=== PATIENT | female | born 1960 | race Caucasian/White ===

== ENCOUNTER → 2023-12-25 09:34 | Outpatient (REF) | payer OTHER, SELFPAY | LOC: WDC 09:34 | PROVIDERS: ATTENDING PHYSICIAN Nurse Practitioner Adult Health; FAMILY PHYSICIAN Nurse Practitioner | DX: N64.4 Mastodynia (principal) | CPT/HCPCS: 76642; 77062; 77066 ==

== ENCOUNTER 2024-03-06 10:20 | Emergency (ER) | payer OTHER, SELFPAY ==
[2024-03-06 10:25] VITALS: BP 162/95
[2024-03-06 11:11] LABS: % Basophils 0.4 % (0-2); % Eosinophils 1.3 % (0-6); % Immature Granulocytes 0.2 % (0-0.5); % Lymphocytes 26.4 % (20.5-51.1); % Neutrophils 62.7 % (42.2-75.2); Absolute Eosinophils 0.1 10^3/uL (0-0.7); Absolute Lymphocytes 1.2 10^3/uL (1.2-3.4); Absolute Monocytes 0.4 10^3/uL (0.1-0.6); Absolute Neutrophils 2.9 10^3/uL (1.4-6.5); Hematocrit 36.5 % (37.0-47.0); Hemoglobin 12.7 g/dL (12.0-16.0); Mean Corp Hgb Conc. 34.8 g/dL (33.0-37.0); Mean Corpuscular Hgb 29.4 pg (27.0-31.0); Mean Corpuscular Volume 84.5 fL (81.0-99.0); Nucleated Red Blood Cells % 0 %; Platelet Count 228 10^3/uL (130-400); Red Blood Cell Count 4.32 10^6/uL (4.20-5.40); Red Cell Dist. Width 12.8 % (11.5-14.5); White Blood Cell Count 4.7 10^3/uL (4.8-10.8)
--- NOTE | 2024-03-06 11:11 | ED.GENMED ---
History of Present Illness
General
Chief Complaint: Throat Problem
Time Seen by Provider: 03/06/24 10:30
Travel History
Have you had any contact with someone who has COVID-19?: No
Do you have any symptoms of coronavirus? Fever > 100 degrees, chills, cough, shortness of breath, sore throat, loss of taste or smell, muscle aches, or headache?: Yes
Symptoms:: sore throat
History of Present Illness
History of Present Illness:
63-year-old female with history of thyroid cancer status post thyroidectomy presents to the emergency department for evaluation of left-sided neck discomfort and dysphagia for the past 4 days. Denies any associated fevers or chills. No voice
changes or stridor. No URI symptoms or coughing. No pain with neck rotation. No ill contacts at home.
Past History
Past History
ED Past Medical History: Cancer
ED Past Surgical History: Other (thyroid sx)
Review of Systems
Review of Systems
Allergies reviewed?: Yes
All Other Systems: ROS reviewed and negative except as documented in HPI and ROS
Phy Exam
Physical Exam
Physical Exam:
GEN: Well appearing, NAD, WDWN
HEENT: Oral mucosa moist, no scleral icterus, oropharynx clear without erythema, or tonsillar hypertrophy. No stridor, normal phonation. No palpable cervical adenopathy
Cardiac: Regular rate
Lung: No respiratory distress, no tachypnea
MSK: No gross deformity or injuries
Skin: Good color, no pallor or jaundice, no rashes
Neuro: AO x3, moves all extremities freely
Psych: Calm, cooperative
Course
Orders/Labs/Results
Orders:
Orders
03/06/24 11:01
CT Neck With Iv Contrast Urgent
Comment:
Reason For Exam: L neck pain/dysphagia
03/06/24 11:04
Basic Metabolic Panel Urgent
Complete Blood Count/With Diff Urgent
Abnormal Lab Results
03/06/24
11:04
WBC 4.7 L 10^3/uL
(4.8-10.8)
Hct 36.5 L %
(37.0-47.0)
Sodium 134 L mmol/L
(135-145)
Glucose 111 H mg/dl
(70-99)
Calcium 8.2 L mg/dl
(8.4-10.2)
03/06/24 11:04
03/06/24 11:04
Vital Signs
Initial and Last Documented VS:
Initial Vital Signs
Temp Pulse Resp BP Pulse Ox
98.0 F 87 18 162/95 97
03/06/24 10:25 03/06/24 10:25 03/06/24 10:25 03/06/24 10:25 03/06/24 10:25
Last Documented Vital Signs
Temp Pulse Resp BP Pulse Ox
98.0 F 87 18 162/95 97
03/06/24 10:25 03/06/24 10:25 03/06/24 10:25 03/06/24 10:25 03/06/24 10:25
MDM/Problems Addressed
MDM/Problems Addressed:
Workup is unremarkable, labs and CT are reassuring, discussed need for primary care follow-up for any worsening symptoms
*Critical Care Note
Total Time (30-74mins, 75-104mins- exclusive of procedures): Not Applicable
ED Attending Note
-
Portions of this chart may have been created with voice recognition software.� Occasional wrong word or��sound alike� substitutions may have occurred due to the inherent limitations of voice recognition software.
Discharge Plan
Departure
Patient Disposition: Home (Routine Discharge)
Date of Disposition: 03/06/24
Time of Disposition: 12:09
Patient with high blood pressure during this ER visit?: No
Discharge Problem:
Acute viral pharyngitis
Instructions: Sore Throat, Adult (DC)
Prescriptions:
No Action
hydroxyzine HCl 10 MG tablet
10 mg PO TID Qty: 14 0RF
diphenhydramine HCl [Benadryl] 25 MG capsule
50 mg PO PRN PRN (Reason: ITCHING/RASH)
levothyroxine 100 MCG tablet
100 mcg PO DAILY
Referrals:
Tiesha Butler CRNP [Family Provider] -
Activity Restrictions/Additional Instructions:
There is no evidence of abscess or obvious infection in the throat
Interventions
Interventions:
*Risk Screen - Suicide Last Done: 03/06/24 12:18
*General Assessment Last Done: 03/06/24 10:25
*Neglect/Abuse Screening Last Done: 03/06/24 12:18
ED- Fall Risk Assessment Last Done: 03/06/24 12:18
*ED COVID-19 Vaccine History Last Done: 03/06/24 10:25
*Nursing Disposition Last Done: 03/06/24 12:18
ED-EENT Assessment Last Done: 03/06/24 12:18
ED- Pulmonary Assessment Last Done: 03/06/24 12:18
Discharge Date and Time
Discharge Date/Time: 03/06/24 12:19
Print Language: EQUATORIAL GUINEAN
[2024-03-06 11:33] LABS: Blood Urea Nitrogen 12 mg/dl (7-17); Calcium 8.2 mg/dl (8.4-10.2); Carbon Dioxide 25 mmol/L (22-30); Chloride 104 mmol/L (98-107); Glucose 111 mg/dl (70-99); Potassium 3.9 mmol/L (3.5-5.1); Sodium 134 mmol/L (135-145); eGFR > 60.00
== END 2024-03-06 12:19 | disposition home or self-care (01) ==
LOC: EMR 10:20
PROVIDERS: Physician Assistant; EMERGENCY PHYSICIAN Emergency Medicine; FAMILY PHYSICIAN Nurse Practitioner
DX: J02.8 Acute pharyngitis due to other specified organisms (principal); R13.10 Dysphagia, unspecified; M54.2 Cervicalgia; Z85.850 Personal history of malignant neoplasm of thyroid; E89.0 Postprocedural hypothyroidism; Z88.0 Allergy status to penicillin
CPT/HCPCS: 99285; 70491; 80048; 85025; Q9967

== ENCOUNTER → 2024-04-15 07:48 | Outpatient (REF) | payer OTHER, SELFPAY | LOC: HWRAD 07:48 | PROVIDERS: ATTENDING PHYSICIAN Internal Medicine Endocrinology, Diabetes & Metabolism; FAMILY PHYSICIAN Nurse Practitioner | DX: C73 Malignant neoplasm of thyroid gland (principal) | CPT/HCPCS: 71260; 74177; Q9967 ==

== ENCOUNTER → 2024-04-29 14:07 | Outpatient (REF) | payer OTHER, SELFPAY | LOC: HWRAD 14:07 | PROVIDERS: ATTENDING PHYSICIAN Nurse Practitioner | DX: M54.2 Cervicalgia (principal) | CPT/HCPCS: 72050 ==

== ENCOUNTER → 2024-05-13 14:44 | Outpatient (REF) | payer OTHER, SELFPAY | LOC: HWRAD 14:44 | PROVIDERS: ATTENDING PHYSICIAN Nurse Practitioner Adult Health; FAMILY PHYSICIAN Nurse Practitioner | DX: N83.209 Unspecified ovarian cyst, unspecified side (principal) | CPT/HCPCS: 76830; 76856 ==

== ENCOUNTER → 2024-06-15 20:02 | Outpatient (REF) | payer OTHER, SELFPAY | LOC: MRI 20:02 | PROVIDERS: ATTENDING PHYSICIAN Nurse Practitioner Adult Health; FAMILY PHYSICIAN Nurse Practitioner | DX: N83.209 Unspecified ovarian cyst, unspecified side (principal) | CPT/HCPCS: 72197 ==

== ENCOUNTER 2024-09-08 09:38 | Emergency (ER) | payer OTHER, SELFPAY ==
--- NOTE | 2024-09-08 09:56 | ED.GENMED ---
History of Present Illness
General
Chief Complaint: Abdominal Symptoms
Source: patient
Exam Limitations: none
Time Seen by Provider: 09/08/24 09:55
Nursing documentation reviewed up to this point in time: agreed with
History of Present Illness
History of Present Illness:
64-year-old female with past medical history of diverticulosis, thyroid cancer, known adnexal mass, hiatal hernia, presents emergency department today with concerns of abdominal pain for the past 4 days. Patient reports that a few days ago she
started experiencing some fullness in the abdomen which started in the suprapubic region and progressed to the periumbilical region. This is associated with intermittent sharp cramping. She notes that the pain is worse with movement and improves
with lying down. Patient states that she notices the pressure more when standing. She denies recent travel, recent antibiotics. Patient denies radiation of the pain to the back. Patient notes some intermittent nausea but denies fevers, denies
vomiting. She had also noted that her stools have gotten looser. She denies blood in the stools, burning with urination. She also notes that her appetite is decreased. Patient states that she has had diverticulitis in the past but states that
this feels different from that time.
Past History
Past History
ED Past Medical History: Cancer
ED Past Surgical History: Other (thyroid sx)
Review of Systems
Review of Systems
All Other Systems: ROS reviewed and negative except as documented in HPI and ROS
Phy Exam
Physical Exam
Physical Exam:
General: Patient is well appearing and in no acute distress; non-toxic
Skin: Warm and dry, no rashes or lesions
Head: Normocephalic, atraumatic
Eyes: Sclera non-icteric. EOMs intact.
Cardiac: Regular rate and rhythm, no murmurs
Peripheral Vascular: No lower extremity swelling or edema
Pulm: Normal respiratory effort, no wheezes, rales, or rhonchi
Abdomen: Left-sided abdominal tenderness to palpation noted, with guarding. No rebound tenderness. No tenderness at McBurney's point.
Neuro: CN II-XII intact, no focal neurologic deficits.
Psychiatric: Appropriate mood and affect.
Course
Orders/Labs/Results
Orders:
Orders
09/08/24 10:00
IV Insert/Care/Rem.- Treatment PRN
09/08/24 10:36
Complete Blood Count/With Diff Urgent
Comprehensive Metabolic Panel Urgent
Lipase Urgent
Comment: ADD ON
09/08/24 10:55
Add On- LAB Urgent
Tests Added?: lipase
09/08/24 10:56
CT Abd/pelvis W Iv Cont Urgent
Comment:
Reason For Exam: periumbilical abdomial pain
Abnormal Lab Results
09/08/24
10:36
Lymphocytes % 17.1 L %
(20.5-51.1)
Glucose 101 H mg/dl
(70-99)
Alkaline Phosphatase 133 H U/L
(38-126)
09/08/24 10:36
09/08/24 10:36
Vital Signs
Initial and Last Documented VS:
Initial Vital Signs
Temp Pulse Resp Pulse Ox
98.5 F 90 18 97
09/08/24 09:43 09/08/24 09:43 09/08/24 09:43 09/08/24 09:43
Last Documented Vital Signs
Temp Pulse Resp BP Pulse Ox
98.5 F 83 18 129/80 96
09/08/24 09:43 09/08/24 14:47 09/08/24 14:47 09/08/24 14:47 09/08/24 14:47
MDM/Problems Addressed
Differential Diagnosis Includes:
Differential include gastritis, diverticulitis, appendicitis, cholecystitis, viral syndrome, musculoskeletal sprain/strain
MDM/Problems Addressed:
63-year-old female with past medical history of diverticulitis presents emergency department today with pelvic pain and central abdominal fullness. She has tenderness to palpation left abdominal region on exam with guarding noted. She is no
palpable abdominal masses. She is afebrile. Her CBC and CMP are unremarkable. Patient did not want anything for pain at this time. Patient was sent for CAT scan with IV contrast which demonstrated findings compatible with diverticulitis
involving the sigmoid colon in the left pelvis with no evidence for abscess, did also note small to moderate central hiatal hernia. Discussed findings with patient, will start patient on Augmentin and discharged the as outpatient. Patient is
documented to have an allergy to penicillins however patient states that she has tolerated penicillins without any interaction in the past. In terms of the hiatal hernia, patient states that she knows about this and has never had reflux symptoms or
epigastric pain, patient states that she will follow-up with PCP. Patient stable for discharge.
Chronic conditions affecting care:
n/a
Acute Exacerbation and/or Progression of Chronic Illness:
n/a
*Pulse Oximetry
Patient hypoxic: no
*Critical Care Note
Total Time (30-74mins, 75-104mins- exclusive of procedures): Not Applicable
Data Reviewed
Review of Other/Old Records Reveals: Records (Reviewed ER physician documentation from 03/06/2024, patient seen for acute pharyngitis, reviewed colonoscopy from [address] Feliciano, patient had scattered diverticulosis but no other lesions)
Source: patient and records
Prescriptions/Medications Considered But Not Given:
n/a
Further Testing Considered But Not Given:
n/a
Patient Management
Escalation/DeEscalation of care consider admission/obs:
Case reviewed with my attending, patient stable for discharge
ED Attending Note
-
Portions of this chart may have been created with voice recognition software.� Occasional wrong word or��sound alike� substitutions may have occurred due to the inherent limitations of voice recognition software.
Discharge Plan
Departure
Patient Disposition: Home (Routine Discharge)
Date of Disposition: 09/08/24
Time of Disposition: 14:32
Patient with high blood pressure during this ER visit?: Yes
Condition: Good
Discharge Problem:
Sigmoid diverticulitis
Instructions: Diverticulitis, Abdominal Pain, BLOOD PRESSURE
Prescriptions:
New
amoxicillin-pot clavulanate 875-125 mg tablet
1 tab PO BID 7 Days Qty: 14 0RF
No Action
hydroxyzine HCl 10 MG tablet
10 mg PO TID Qty: 14 0RF
diphenhydramine HCl [Benadryl] 25 MG capsule
50 mg PO PRN PRN (Reason: ITCHING/RASH)
levothyroxine 100 MCG tablet
100 mcg PO DAILY
Referrals:
Bartolo Napier CRNP [Family Provider] -
Activity Restrictions/Additional Instructions:
Please return to the emergency department should you experience an acute worsening of your symptoms, fevers or chills, nausea or vomiting, chest pain, shortness of breath.
Please follow up with PCP.
Interventions
Interventions:
*Risk Screen - Suicide Last Done: 09/08/24 09:43
*General Assessment Last Done: 09/08/24 09:43
*Neglect/Abuse Screening Last Done: 09/08/24 10:23
ED- Fall Risk Assessment Last Done: 09/08/24 10:24
*ED COVID-19 Vaccine History Last Done: 09/08/24 09:43
*Nursing Disposition Last Done: 09/08/24 14:47
UP-Mqhmyc-Wllniuxwmw Assessment Last Done: 09/08/24 10:24
Discharge Date and Time
Discharge Date/Time: 09/08/24 14:49
Print Language: UPPER SORBIAN
[2024-09-08 10:25] VITALS: BMI 29.2
[2024-09-08 10:45] LABS: % Basophils 0.5 % (0-2); % Eosinophils 0.7 % (0-6); % Immature Granulocytes 0.5 % (0-0.5); % Lymphocytes 17.1 % (20.5-51.1); % Monocytes 7.8 % (1.7-9.3); % Neutrophils 73.4 % (42.2-75.2); Absolute Eosinophils 0.1 10^3/uL (0-0.7); Absolute Lymphocytes 1.4 10^3/uL (1.2-3.4); Absolute Monocytes 0.6 10^3/uL (0.1-0.6); Hematocrit 37.5 % (37.0-47.0); Hemoglobin 12.9 g/dL (12.0-16.0); Mean Corp Hgb Conc. 34.4 g/dL (33.0-37.0); Mean Corpuscular Hgb 29.1 pg (27.0-31.0); Mean Corpuscular Volume 84.5 fL (81.0-99.0); Mean Platelet Volume 9.8 fL (7.4-10.4); Nucleated Red Blood Cells % 0 %; Platelet Count 249 10^3/uL (130-400); Red Blood Cell Count 4.44 10^6/uL (4.20-5.40); Red Cell Dist. Width 12.7 % (11.5-14.5); White Blood Cell Count 8.1 10^3/uL (4.8-10.8)
[2024-09-08 11:02] LABS: ALT (SGPT) 34 U/L (0-35); AST (SGOT) 31 U/L (14-36); Albumin 4.3 g/dl (3.5-5.0); Alkaline Phosphatase 133 U/L (38-126); Blood Urea Nitrogen 10 mg/dl (7-17); Calcium 8.7 mg/dl (8.4-10.2); Carbon Dioxide 24 mmol/L (22-30); Chloride 100 mmol/L (98-107); Estimated Creatinine Clearance 88 ml/min; Glucose 101 mg/dl (70-99); Potassium 4.2 mmol/L (3.5-5.1); Sodium 139 mmol/L (135-145); Total Bilirubin 0.7 mg/dl (0.2-1.3); Total Protein 7.1 g/dl (6.3-8.2); eGFR > 60.00
[2024-09-08 11:37] LABS: Lipase 62 U/L (23-300)
[2024-09-08 14:47] VITALS: BP 129/80
== END 2024-09-08 14:49 | disposition home or self-care (01) ==
LOC: EMR 09:38
PROVIDERS: Physician Assistant; EMERGENCY PHYSICIAN Emergency Medicine
DX: K57.32 Diverticulitis of large intestine without perforation or abscess without bleeding (principal); Z85.850 Personal history of malignant neoplasm of thyroid; K44.9 Diaphragmatic hernia without obstruction or gangrene
CPT/HCPCS: 99284; 74177; 80053; 83690; 85025; Q9967

== ENCOUNTER → 2024-11-21 13:03 | Outpatient (REF) | payer OTHER, SELFPAY | LOC: HWRAD 13:03 | PROVIDERS: ATTENDING PHYSICIAN Internal Medicine Endocrinology, Diabetes & Metabolism; REFERRING PHYSICIAN Obstetrics & Gynecology Gynecology | DX: C73 Malignant neoplasm of thyroid gland (principal); N94.89 Other specified conditions associated with female genital organs and menstrual cycle | CPT/HCPCS: 76536; 76830; 76856 ==

== ENCOUNTER → 2025-04-12 09:41 | Outpatient (REF) | payer OTHER, SELFPAY | LOC: HWRAD 09:41 | PROVIDERS: ATTENDING PHYSICIAN Nurse Practitioner Adult Health | DX: N94.89 Other specified conditions associated with female genital organs and menstrual cycle (principal) | CPT/HCPCS: 76830; 76856 ==

== ENCOUNTER → 2025-06-23 11:49 | Outpatient (REF) | payer OTHER, SELFPAY | LOC: HWWDC 11:49 | PROVIDERS: REFERRING PHYSICIAN Nurse Practitioner Adult Health | DX: Z12.31 Encounter for screening mammogram for malignant neoplasm of breast (principal) | CPT/HCPCS: 77063; 77067 ==

== ENCOUNTER → 2025-08-02 07:48 | Outpatient (REF) | payer OTHER, SELFPAY | LOC: WDC 07:48 | DX: R92.333 Mammographic heterogeneous density, bilateral breasts (principal) | CPT/HCPCS: 76641 ==

== ENCOUNTER → 2025-08-24 12:47 | Outpatient (REF) | payer OTHER, SELFPAY | LOC: HWRAD 12:47 | PROVIDERS: ATTENDING PHYSICIAN Internal Medicine Endocrinology, Diabetes & Metabolism | DX: C73 Malignant neoplasm of thyroid gland (principal) | CPT/HCPCS: 76536 ==